=== PATIENT | female | born 1990 | race Two or more races ===

== ENCOUNTER 2016-08-04 01:30 | Observation (INO) | payer SELFPAY ==
[2015-06-07 16:06] VITALS: BP 129/92
[~2016-08-04 01:30] MED LIST: Ibuprofen PO
[2016-08-04] MEDS ORDERED: IV RINGERS,LACTATED 1000ML 1,000 ML IV SCH (01:45)
--- NOTE | 2016-08-04 03:24 | RAD ---
Examination: Obstetric ultrasound noted within 14 weeks. History: History of left-sided abdominal pain. COMPARISON None available Findings: Single living intrauterine fetus is identified with a heart rate of 144 beats per minute. movement is seen. Cardiac activity seen. Four chambered heart is seen. Three vessel cord is seen. Cord insertion is identified. Fluid in the bladder, stomach, kidneys, spine, brain are visualized. Cervical length 3.95 centimeters. Amniotic fluid is normal. Biparietal diameter measures 5.43 centimeters corresponding to 22 weeks and 4 days. Head circumference measures 20.2 centimeters corresponding to 22 weeks and 3 days Abdominal circumference measures 17.48 centimeters corresponding to 22 weeks and 5 days. Femur length measures 3.96 centimeters corresponding to 22 weeks and 5 days. Head circumference to abdominal circumference ratio 1.16. Estimated weight 513 grams. Estimated gestation age 22 weeks and 4 days by this ultrasound. Date of delivery by this ultrasound 12/04/2016. Given LMP is 03/23/2016. Clinical age is 19 weeks and 1 day with estimated delivery by LMP 12/28/2016. Placental grade :grade 1. Placenta location is a anterior wall. IMPRESSION Single living intrauterine fetus with heart rate of 144 beats per minute. Electronically signed by: Dick Macias (Aug 04, 2016 03:22:24)
== END 2016-08-04 04:16 | disposition home or self-care (01) ==
LOC: 3 SO LND 01:30
PROVIDERS: ADMIT Obstetrics & Gynecology; ATTEND Obstetrics & Gynecology
DX: O26.892 Other specified pregnancy related conditions, second trimester (principal); R10.9 Unspecified abdominal pain; Z3A.22 22 weeks gestation of pregnancy
CPT/HCPCS: 76805; G0378; G0379

== ENCOUNTER 2016-09-07 23:13 | Emergency (ER) | payer SELFPAY ==
[~2016-09-07] VITALS: Ht 165.1 cm; Wt 79.8 kg
[2016-09-07 23:28] VITALS: BP 110/61
--- NOTE | 2016-09-07 23:45 | PHYS DOC ---
Past Medical History Past Medical History: No Pertinent History Past Surgical History: No Surgical History Alcohol Use: None Drug Use: None Adult General Chief Complaint Chief Complaint: FEVER HPI HPI Patient is a 26 year old female who presents with cough, congestion, fever, body aches and headache that started yesterday. Took Tylenol at 0700 today. reports friend was diagnosed with influenza yesterday. Reports she herself is 6months . Denies any abdominal pain, vaginal bleeding, cramping Review of Systems Review of Systems Constitutional: fever since yesterday Eyes: Denies change in visual acuity, redness, or eye pain HENT: Denies nasal congestion or sore throat Respiratory: Cough since yesterday Cardiovascular: No additional information not addressed in HPI GI: Denies abdominal pain, nausea, vomiting, bloody stools or diarrhea : Denies dysuria or hematuria Musculoskeletal: Denies back pain or joint pain Integument: Denies rash or skin lesions Neurologic: Denies focal weakness or sensory changes. Headache since yesterday Endocrine: Denies polyuria or polydipsia [] Current Medications Current Medications Current Medications Medications (Trade) Dose Ordered Sig/Cynthia Start Time Stop Time Status Last Admin Dose Admin Oseltamivir Phosphate (Tamiflu) 75 mg 1X ONCE 09/08/16 00:30 09/08/16 00:31 DC 09/08/16 00:29 75 MG Allergies Allergies Allergies Coded Allergies Type Severity Reaction Last Updated Verified No Known Drug Allergies 06/04/15 No Physical Exam Physical Exam Constitutional: Well developed, well nourished, no acute distress, non-toxic appearance. HENT: Normocephalic, atraumatic, bilateral external ears normal, oropharynx moist, no oral exudates, nose normal. Eyes: PERRLA, EOMI, conjunctiva normal, no discharge. Neck: Normal range of motion, no tenderness, supple, no stridor. Cardiovascular:Heart rate regular rhythm, no murmur Lungs & Thorax: Bilateral breath sounds clear to auscultation Abdomen: Bowel sounds normal, soft, no tenderness, no masses, no pulsatile masses. Skin: Warm, dry, no erythema, no rash. Back: No tenderness, no CVA tenderness. Extremities: No tenderness, no cyanosis, no clubbing, ROM intact, no edema. Neurologic: Alert and oriented X 3, normal motor function, normal sensory function, no focal deficits noted. Psychologic: Affect normal, judgement normal, mood normal. [] Current Patient Data Vital Signs Vital Signs Date Time Temp Pulse Resp B/P Pulse Ox O2 Delivery O2 Flow Rate FiO2 09/07/16 23:28 97.8 104 17 97 Room Air 97.8 Lab Values Laboratory Tests Test 09/07/16 23:36 Influenza Type A Antigen Positive (NEGATIVE) Influenza Type B Antigen Negative (NEGATIVE) EKG EKG [] Radiology/Procedures Radiology/Procedures [] Impressions: 1. Influenza A Course & Med Decision Making Course & Med Decision Making Pertinent Labs and Imaging studies reviewed. (See chart for details) [] Dragon Disclaimer Dragon Disclaimer This electronic medical record was generated, in whole or in part, using a voice recognition dictation system. Departure Departure Impression: Primary Impression: Influenza A Disposition: 01 HOME, SELF-CARE Condition: STABLE Referrals: NO PCP (PCP) Patient Instructions: Influenza A (H1N1) in , Influenza, Adult, Easy- to-Read Additional Instructions: Continue the Tylenol as directed for fever control. Drink plenty of fluid. Call your OB in the morning to schedule follow up appointment. Take the prescription as directed. Scripts Oseltamivir Phosphate (Tamiflu)75 Mg Capsule1 Cap PO BID #10 CAP Prov:GERMAN NEWBERRY APRN 09/08/16 GERMAN NEWBERRY APRN Sep 07, 2016 23:45
[2016-09-08 00:11] LABS: OBC FLU VALID
[2016-09-08] MEDS ORDERED: OSEL75CA PO (00:21)
[2016-09-08] MEDS ORDERED: OSELTAMIVIR 75 MG CAPSULE PO ONE (00:30)
== END 2016-09-08 00:33 | disposition home or self-care (01) ==
LOC: ER 23:13
DX: O99.512 Diseases of the respiratory system complicating pregnancy, second trimester (principal); J09.X2 Influenza due to identified novel influenza A virus with other respiratory manifestations; Z3A.00 Weeks of gestation of pregnancy not specified
CPT/HCPCS: 87804; 99284

== ENCOUNTER 2016-11-12 23:23 | Observation (INO) | payer SELFPAY ==
[~2016-11-12 23:23] MED LIST changes: +OSEL75CA PO
[2016-11-12] MEDS ORDERED: IV RINGERS,LACTATED 1000ML 1,000 ML IV SCH (23:30)
[2016-11-12 23:54] LABS: BILIRUBIN,URINE NEGATIVE (NEG); GLUCOSE,URINE NEGATIVE (NEG); NITRITE,URINE NEGATIVE (NEG); PH,URINE 7.5; PROTEIN,URINE NEGATIVE (NEG-TRACE)
[2016-11-13 00:02] LABS: BACTERIA,URINE FEW /HPF (0-FEW); RBC,URINE OCC /HPF (0-2); SQUAMOUS EPITHELIAL CELL,UR MOD /LPF
[2016-12-04] MEDS ORDERED: NAPR500T PO (11:25)
== END 2016-11-13 00:35 | disposition home or self-care (01) ==
LOC: 3 SO LND 23:23
PROVIDERS: ADMIT Obstetrics & Gynecology; ATTEND Obstetrics & Gynecology
DX: O26.893 Other specified pregnancy related conditions, third trimester (principal); N89.8 Other specified noninflammatory disorders of vagina; M79.673 Pain in unspecified foot; Z3A.00 Weeks of gestation of pregnancy not specified
CPT/HCPCS: 81001; 87086; G0378; G0379

== ENCOUNTER 2018-10-31 22:13 | Inpatient (IN) | payer SELFPAY ==
[~2018-10-31] VITALS: Ht 165.1 cm; Wt 82.6 kg
[~2018-10-31 22:13] MED LIST changes: +NAPR-683 PO
[2018-10-31] MEDS ORDERED: IV NORMAL SALINE 1000ML BAG 1,000 ML IV ONE (23:00)
[2018-10-31] MEDS ORDERED: IPRATRPIUM/ALBUTEROL 0.5/2.5MG 3 ML NEBU. NEB ONE (23:00)
[2018-10-31] MEDS ORDERED: DEXAMETHASONE SOD PHOS 20 MG/5 ML VIAL. IV ONE (23:00)
[2018-10-31 23:15] LABS: BASO % 1 % (0-3); EOS # 0.6 x10^3/uL (0.0-0.7); EOS % 8 % (0-3); HEMATOCRIT 34.8 % (36.0-47.0); HEMOGLOBIN 11.1 g/dL (12.0-15.5); LYMPH # 1.2 x10^3/uL (1.0-4.8); LYMPH % 15 % (24-48); MEAN CORPUSCULAR HEMOGLOBIN 23 pg (25-35); MEAN CORPUSCULAR HGB CONC 32 g/dL (31-37); MEAN CORPUSCULAR VOLUME 73 fL (79-100); MONO # 0.4 x10^3/uL (0.0-1.1); MONO % 5 % (0-9); NEUT # 5.7 x10^3uL (1.8-7.7); NEUT % 72 % (31-73); PLATELET COUNT 308 x10^3/uL (140-400); RED BLOOD COUNT 4.78 x10^6/uL (3.50-5.40); RED CELL DISTRIBUTION WIDTH 16.5 % (11.5-14.5)
[2018-10-31 23:27] LABS: CREATININE 0.8 mg/dL (0.6-1.0); GFR 86.7; POTASSIUM 3.4 mmol/L (3.5-5.1)
[2018-10-31 23:32] LABS: ALBUMIN 3.5 g/dL (3.4-5.0); ALBUMIN/GLOBULIN RATIO 0.7 (1.0-1.7); MAGNESIUM 1.9 mg/dL (1.8-2.4); TOTAL BILIRUBIN 0.3 mg/dL (0.2-1.0); TOTAL PROTEIN 8.8 g/dL (6.4-8.2)
[2018-11-01] MEDS ORDERED: IPRATRPIUM/ALBUTEROL 0.5/2.5MG 3 ML NEBU. NEB ONE (00:15)
[2018-11-01] MEDS ORDERED: CONTRAST GIVEN. MC PRN (00:15)
--- NOTE | 2018-11-01 00:22 | PHYS DOC ---
Past Medical History Past Medical History: No Pertinent History Past Surgical History: No Surgical History Alcohol Use: None Drug Use: None Adult General Chief Complaint Chief Complaint: SHORTNESS OF BREATH HPI HPI Patient is a 28 year old female who presents with shortness of breath. She says shortness of breath started this morning when she was walking. She denies having any symptoms like this in the past. She is reporting some chest pain when she takes a deep breath. She also having some lightheadedness. Her shortness of breath is worse with exertion. Rest improved shortness of breath. Patient denies any fevers, chills, or recent sick contacts. Review of Systems Review of Systems Constitutional: Denies fever or chills Eyes: Denies change in visual acuity, redness, or eye pain HENT: Denies nasal congestion or sore throat Respiratory: Reports shortness of breath. Denies cough. Cardiovascular: Reports shortness of breath with inspiration. Denies palpitations. GI: Denies abdominal pain, nausea, vomiting : Denies dysuria or hematuria Musculoskeletal: Denies back pain or joint pain Integument: Denies rash or skin lesions Neurologic: Reports lightheadedness. Denies focal weakness or sensory changes Complete systems were reviewed and found to be within normal limits, except as documented in this note. Current Medications Current Medications Current Medications Medications (Trade) Dose Ordered Sig/Cynthia Start Time Stop Time Status Last Admin Dose Admin Albuterol/ Ipratropium (Duoneb) 3 ml 1X ONCE 11/01/18 00:15 11/01/18 00:16 DC 11/01/18 00:11 3 ML Dexamethasone Sodium Phosphate (Decadron) 10 mg 1X ONCE 10/31/18 23:00 10/31/18 23:01 DC 10/31/18 23:20 10 MG Info (CONTRAST GIVEN -- Rx MONITORING) 1 each PRN DAILY PRN 11/01/18 00:15 11/03/18 00:14 Iohexol (Omnipaque 350 Mg/ml) 100 ml 1X ONCE 11/01/18 00:30 11/01/18 00:31 DC 11/01/18 00:29 100 ML Sodium Chloride 500 ml @ 500 mls/hr 1X ONCE 11/01/18 00:30 11/01/18 01:29 DC 11/01/18 01:02 500 MLS/HR Allergies Allergies Allergies Coded Allergies Type Severity Reaction Last Updated Verified No Known Drug Allergies 06/04/15 No Physical Exam Physical Exam Constitutional: No acute distress, non-toxic appearance. HENT: Normocephalic, atraumatic, bilateral external ears normal, oropharynx moist. Eyes: EOMI, conjunctiva normal, no discharge. Neck: Normal range of motion, no tenderness, supple. Cardiovascular:Heart rate regular rhythm, no murmur Lungs & Thorax: Expiratory wheezing bilaterally. No rhonchi or rails Abdomen: Soft, nontender. Skin: Warm, dry Back: No tenderness, no CVA tenderness. Extremities: No cyanosis, no clubbing, no edema. Neurologic: Alert and oriented X 3, normal motor function, normal sensory function, no focal deficits noted. Psychologic: Affect normal, mood normal. Current Patient Data Vital Signs Vital Signs Date Time Temp Pulse Resp B/P (MAP) Pulse Ox O2 Delivery O2 Flow Rate FiO2 11/01/18 00:11 100 Room Air 10/31/18 23:24 92 20 139/82 (101) 10/31/18 22:15 98.9 98.9 Lab Values Laboratory Tests Test 10/31/18 23:05 10/31/18 23:09 10/31/18 23:10 White Blood Count 8.0 x10^3/uL (4.0-11.0) Red Blood Count 4.78 x10^6/uL (3.50-5.40) Hemoglobin 11.1 g/dL (12.0-15.5) L Hematocrit 34.8 % (36.0-47.0) L Mean Corpuscular Volume 73 fL (79-100) L Mean Corpuscular Hemoglobin 23 pg (25-35) L Mean Corpuscular Hemoglobin Concent 32 g/dL (31-37) Red Cell Distribution Width 16.5 % (11.5-14.5) H Platelet Count 308 x10^3/uL (140-400) Neutrophils (%) (Auto) 72 % (31-73) Lymphocytes (%) (Auto) 15 % (24-48) L Monocytes (%) (Auto) 5 % (0-9) Eosinophils (%) (Auto) 8 % (0-3) H Basophils (%) (Auto) 1 % (0-3) Neutrophils # (Auto) 5.7 x10^3uL (1.8-7.7) Lymphocytes # (Auto) 1.2 x10^3/uL (1.0-4.8) Monocytes # (Auto) 0.4 x10^3/uL (0.0-1.1) Eosinophils # (Auto) 0.6 x10^3/uL (0.0-0.7) Basophils # (Auto) 0.0 x10^3/uL (0.0-0.2) D-Dimer (Shelly) 0.62 ug/mlFEU (0.00-0.50) H Sodium Level 138 mmol/L (136-145) Potassium Level 3.4 mmol/L (3.5-5.1) L Chloride Level 102 mmol/L (98-107) Carbon Dioxide Level 27 mmol/L (21-32) Anion Gap 9 (6-14) Blood Urea Nitrogen 11 mg/dL (7-20) Creatinine 0.8 mg/dL (0.6-1.0) Estimated GFR (Cockcroft-Gault) 86.7 BUN/Creatinine Ratio 14 (6-20) Glucose Level 105 mg/dL (70-99) H Calcium Level 9.0 mg/dL (8.5-10.1) Magnesium Level 1.9 mg/dL (1.8-2.4) Total Bilirubin 0.3 mg/dL (0.2-1.0) Aspartate Amino Transferase (AST) 26 U/L (15-37) Alanine Aminotransferase (ALT) 22 U/L (14-59) Alkaline Phosphatase 104 U/L (46-116) Total Protein 8.8 g/dL (6.4-8.2) H Albumin 3.5 g/dL (3.4-5.0) Albumin/Globulin Ratio 0.7 (1.0-1.7) L POC Urine HCG, Qualitative Hcg negative (Negative) Lactic Acid Level 1.2 mmol/L (0.4-2.0) Laboratory Tests 10/31/18 23:05 Laboratory Tests 10/31/18 23:05 EKG EKG EKG @ 2221, sinus rhythm, no ST elevation or signs of ischemia Radiology/Procedures Radiology/Procedures PROCEDURE: CT ANGIOGRAPHY CHEST INDICATION: SOA; EVAL FOR PE; OMNI 350, 100ML COMPARISON: None. TECHNIQUE: Axial CT images obtained through the chest. Intravenous contrast utilized. Angiogram 3D images processed per protocol. One or more of the following individualized dose reduction techniques were utilized for this examination: 1. Automated exposure control; 2. Adjustment of the mA and/or kV according to patient size; 3. Use of iterative reconstruction technique. FINDINGS: Patient motion limits exam. No evidence of pneumothorax. Groundglass opacity in the right middle lobe. There is also a small groundglass opacity at right lung base. A ascending thoracic aorta is largely obscured by motion. No evidence of descending thoracic aortic aneurysm. No embolus in the main, right main or left main pulmonary artery. Large amount of patient motion obscures the more peripheral vessels. IMPRESSION: Large amount of patient motion limits the exam. No embolus in main, right main or left main pulmonary artery but the more peripheral vessels are obscured by motion. There are couple small groundglass opacities within the right lung. Could be secondary to atelectatic changes but small foci of airway inflammation can also have this appearance. Electronically signed by: Mode Zepeda MD (11/01/2018 1:28 AM) [facility] DICTATED and SIGNED BY: MODE ZEPEDA MD Course & Med Decision Making Course & Med Decision Making 28 year old female is in the emergency department for shortness of breath. Patient stated she is retrosternal around 10:30 this morning. She denies any previous medical history of asthma or similar problems to her chest expansion today. Denies any family history of heart disease or blood clots. Patient had auditory expiratory wheezing upon arrival but was satting at 98%. Labs and imaging March and posted to chart. D-dimer is elevated. Symptomatic treatment provided with interval improvement. Initial breathing treatment provided relief however patient required additional breathing treatments to treat her shortness of breath. Dragon Disclaimer Dragon Disclaimer This electronic medical record was generated, in whole or in part, using a voice recognition dictation system. Departure Departure Impression: Primary Impression: Bronchitis Disposition: ADMITTED INPATIENT Admitting Physician: Marlen Singh Condition: STABLE Referrals: NO PCP (PCP) AWILDA BROOKE DO Nov 01, 2018 00:22
[2018-11-01] MEDS ORDERED: IV NORMAL SALINE 500ML BAG 500 ML IV ONE (00:30)
[2018-11-01] MEDS ORDERED: IOHEXOL 350 MG/ML 100 ML VIAL. IV ONE (00:30)
--- NOTE | 2018-11-01 01:31 | RAD ---
INDICATION: SOA; EVAL FOR PE; OMNI 350, 100ML COMPARISON: None. TECHNIQUE: Axial CT images obtained through the chest. Intravenous contrast utilized. Angiogram 3D images processed per protocol. One or more of the following individualized dose reduction techniques were utilized for this examination: 1. Automated exposure control; 2. Adjustment of the mA and/or kV according to patient size; 3. Use of iterative reconstruction technique. FINDINGS: Patient motion limits exam. No evidence of pneumothorax. Groundglass opacity in the right middle lobe. There is also a small groundglass opacity at right lung base. A ascending thoracic aorta is largely obscured by motion. No evidence of descending thoracic aortic aneurysm. No embolus in the main, right main or left main pulmonary artery. Large amount of patient motion obscures the more peripheral vessels. IMPRESSION: Large amount of patient motion limits the exam. No embolus in main, right main or left main pulmonary artery but the more peripheral vessels are obscured by motion. There are couple small groundglass opacities within the right lung. Could be secondary to atelectatic changes but small foci of airway inflammation can also have this appearance. Electronically signed by: Ivan Zepeda MD (11/01/2018 1:28 AM) [facility]
[2018-11-01] MEDS ORDERED: ACETAMINOPHEN 325 MG TABLET. PO PRN (02:15)
[2018-11-01 03:00] VITALS: BP 109/69
[2018-11-01 07:00] VITALS: BP 104/53
--- NOTE | 2018-11-01 07:32 | EKG ---
[facility] [address] [place] [address] Test Date: 2018-10-31 Test Time: 22:21:15 Pat Name: ELAN MOSELEY Department: Room: 504 Gender: F Supervisor Fitting: : 1990 Requested By: AWILDA BROOKE Order Number: [id number] Reading MD: Eric Yi Measurements Intervals [place] Rate: 97 P: 11 TN: 166 QRS: 78 QRSD: 92 T: 6 QT: 340 QTc: 435 Interpretive Statements SINUS RHYTHM NON SPECIFIC T ABNORMALITY BORDERLINE ECG No previous ECG available for comparison Electronically Signed On 11-06-2018 12:00:30 CDT by Eric Yi
[2018-11-01] MEDS: IPRATRPIUM/ALBUTEROL 0.5/2.5MG 3 ML NEBU. NEB SCH ×4 (08:56→20:40)
[2018-11-01 11:00] VITALS: BP 120/72
--- NOTE | 2018-11-01 11:59 | PDOC1 ---
History and Physical Date of Admission: Date of Admission DATE: 11/01/18 TIME: 11:56 Chief Complaint: Problems: (1) Influenza A (2) Vaginal delivery (3) Patient left without being seen (4) Bronchitis History of Present Illness: HPI: Patient is a 28 year old female who presents with shortness of breath. She says shortness of breath started this morning when she was walking. She denies having any symptoms like this in the past. She is reporting some chest pain when she takes a deep breath. She also having some lightheadedness. Her shortness of breath is worse with exertion. Rest improved shortness of breath. Patient denies any fevers, chills, or recent sick contacts. Past Medical/Surgical History: PMH/PSH: Benign Allergies: Allergies: Coded Allergies: No Known Drug Allergies (Unverified , 06/04/15) Family History: Family History: Asthma Social History: Social Hisoty: She does not drink smoke or take drugs Current Medications: Current Medications Current Medications Albuterol/ Ipratropium (Duoneb) 3 ml 1X ONCE NEB Last administered on 10/31/18at 23:04; Start 10/31/18 at 23:00; Stop 10/31/18 at 23:01; Status DC Sodium Chloride 1,000 ml @ 1,000 mls/hr 1X ONCE IV Last administered on 10/31/18at 23:16; Start 10/31/18 at 23:00; Stop 10/31/18 at 23:59; Status DC Dexamethasone Sodium Phosphate (Decadron) 10 mg 1X ONCE IV Last administered on 10/31/18at 23:20; Start 10/31/18 at 23:00; Stop 10/31/18 at 23:01; Status DC Albuterol/ Ipratropium (Duoneb) 3 ml 1X ONCE NEB Last administered on 11/01/18at 00:11; Start 11/01/18 at 00:15; Stop 11/01/18 at 00:16; Status DC Sodium Chloride 500 ml @ 500 mls/hr 1X ONCE IV Last administered on 11/01/18at 01:02; Start 11/01/18 at 00:30; Stop 11/01/18 at 01:29; Status DC Iohexol (Omnipaque 350 Mg/ml) 100 ml 1X ONCE IV Last administered on 11/01/18at 00:29; Start 11/01/18 at 00:30; Stop 11/01/18 at 00:31; Status DC Info (CONTRAST GIVEN -- Rx MONITORING) 1 each PRN DAILY PRN MC SEE COMMENTS; Start 11/01/18 at 00:15; Stop 11/03/18 at 00:14 Acetaminophen (Tylenol) 650 mg PRN Q4HRS PRN PO FEVER Last administered on 11/01/18at 03:14; Start 11/01/18 at 02:15; Stop 11/02/18 at 02:14 Albuterol/ Ipratropium (Duoneb) 3 ml RTQID NEB Last administered on 11/01/18at 08:56; Start 11/01/18 at 08:00; Stop 11/02/18 at 07:59 Potassium Chloride (Klor-Con) 40 meq 1X ONCE PO ; Start 11/01/18 at 12:30; Stop 11/01/18 at 12:31 Ceftriaxone Sodium (Rocephin) 1 gm Q24H IVP ; Start 11/01/18 at 13:00 Hydrocortisone (Cortaid) 1 nadia BID TP ; Start 11/01/18 at 21:00 Active Scripts Active ROS: Review of Systems Review of System REVIEW OF SYSTEMS: GENERAL: Denies weakness SKIN: Complains of rash on her skin looked at it looks like psoriasis or ecze ma. EYES: No blurred, double or loss of vision. NOSE AND THROAT: No history of nosebleeds, hoarseness or sore throat. HEART: No history of palpitations, chest pain or shortness of breath on exertion. LUNGS: She complains of cough and shortness of breath GASTROINTESTINAL: Denies changes in appetite, nausea, vomiting, diarrhea or constipation. GENITOURINARY: No history of frequency, urgency, hesitancy or nocturia. NEUROLOGIC: Denies history of numbness, tingling, tremor or weakness. PSYCHIATRIC: No history of panic, anxiety or depression. ENDOCRINE: No history of heat or cold intolerance, polyuria or polydipsia. EXTREMITIES: Denies muscle weakness, joint pain, pain on walking or stiffness. Physical Exam: Vital Signs: Vital Signs Date Time Temp Pulse Resp B/P (MAP) Pulse Ox O2 Delivery O2 Flow Rate FiO2 11/01/18 08:59 100 Room Air 11/01/18 07:00 98.0 101 18 104/53 (70) 98.0 Physcial Exam: GEN.: No apparent distress. Alert and oriented. HEENT: Head is normocephalic, atraumatic NECK: Supple, no JVD LUNGS: Surprisingly Clear to auscultation without rhonchi or wheezing HEART: RRR, S1, S2 present. Peripheral pulses intact ABDOMEN: Soft, nontender. Positive bowel sounds no organomegaly EXTREMITIES: Without any cyanosis, clubbing, or edema. Pedal pulses intact NEUROLOGIC: Normal speech, normal tone. A&O x 3 PSYCHIATRIC: Normal affect, normal mood. Stable SKIN: Abuse eczema and/or psoriasis I gave her prescription to see dermatology as an outpatient Labs: Labs: Laboratory Tests Test 10/31/18 23:05 10/31/18 23:09 10/31/18 23:10 White Blood Count 8.0 x10^3/uL (4.0-11.0) Red Blood Count 4.78 x10^6/uL (3.50-5.40) Hemoglobin 11.1 g/dL (12.0-15.5) Hematocrit 34.8 % (36.0-47.0) Mean Corpuscular Volume 73 fL (79-100) Mean Corpuscular Hemoglobin 23 pg (25-35) Mean Corpuscular Hemoglobin Concent 32 g/dL (31-37) Red Cell Distribution Width 16.5 % (11.5-14.5) Platelet Count 308 x10^3/uL (140-400) Neutrophils (%) (Auto) 72 % (31-73) Lymphocytes (%) (Auto) 15 % (24-48) Monocytes (%) (Auto) 5 % (0-9) Eosinophils (%) (Auto) 8 % (0-3) Basophils (%) (Auto) 1 % (0-3) Neutrophils # (Auto) 5.7 x10^3uL (1.8-7.7) Lymphocytes # (Auto) 1.2 x10^3/uL (1.0-4.8) Monocytes # (Auto) 0.4 x10^3/uL (0.0-1.1) Eosinophils # (Auto) 0.6 x10^3/uL (0.0-0.7) Basophils # (Auto) 0.0 x10^3/uL (0.0-0.2) D-Dimer (Shelly) 0.62 ug/mlFEU (0.00-0.50) Sodium Level 138 mmol/L (136-145) Potassium Level 3.4 mmol/L (3.5-5.1) Chloride Level 102 mmol/L (98-107) Carbon Dioxide Level 27 mmol/L (21-32) Anion Gap 9 (6-14) Blood Urea Nitrogen 11 mg/dL (7-20) Creatinine 0.8 mg/dL (0.6-1.0) Estimated GFR (Cockcroft-Gault) 86.7 BUN/Creatinine Ratio 14 (6-20) Glucose Level 105 mg/dL (70-99) Calcium Level 9.0 mg/dL (8.5-10.1) Magnesium Level 1.9 mg/dL (1.8-2.4) Total Bilirubin 0.3 mg/dL (0.2-1.0) Aspartate Amino Transf (AST/SGOT) 26 U/L (15-37) Alanine Aminotransferase (ALT/SGPT) 22 U/L (14-59) Alkaline Phosphatase 104 U/L (46-116) Total Protein 8.8 g/dL (6.4-8.2) Albumin 3.5 g/dL (3.4-5.0) Albumin/Globulin Ratio 0.7 (1.0-1.7) Bedside Urine HCG, Qualitative Hcg negative (Negative) Lactic Acid Level 1.2 mmol/L (0.4-2.0) Laboratory Tests Test 10/31/18 23:05 10/31/18 23:09 10/31/18 23:10 White Blood Count 8.0 x10^3/uL (4.0-11.0) Red Blood Count 4.78 x10^6/uL (3.50-5.40) Hemoglobin 11.1 g/dL (12.0-15.5) Hematocrit 34.8 % (36.0-47.0) Mean Corpuscular Volume 73 fL (79-100) Mean Corpuscular Hemoglobin 23 pg (25-35) Mean Corpuscular Hemoglobin Concent 32 g/dL (31-37) Red Cell Distribution Width 16.5 % (11.5-14.5) Platelet Count 308 x10^3/uL (140-400) Neutrophils (%) (Auto) 72 % (31-73) Lymphocytes (%) (Auto) 15 % (24-48) Monocytes (%) (Auto) 5 % (0-9) Eosinophils (%) (Auto) 8 % (0-3) Basophils (%) (Auto) 1 % (0-3) Neutrophils # (Auto) 5.7 x10^3uL (1.8-7.7) Lymphocytes # (Auto) 1.2 x10^3/uL (1.0-4.8) Monocytes # (Auto) 0.4 x10^3/uL (0.0-1.1) Eosinophils # (Auto) 0.6 x10^3/uL (0.0-0.7) Basophils # (Auto) 0.0 x10^3/uL (0.0-0.2) D-Dimer (Shelly) 0.62 ug/mlFEU (0.00-0.50) Sodium Level 138 mmol/L (136-145) Potassium Level 3.4 mmol/L (3.5-5.1) Chloride Level 102 mmol/L (98-107) Carbon Dioxide Level 27 mmol/L (21-32) Anion Gap 9 (6-14) Blood Urea Nitrogen 11 mg/dL (7-20) Creatinine 0.8 mg/dL (0.6-1.0) Estimated GFR (Cockcroft-Gault) 86.7 BUN/Creatinine Ratio 14 (6-20) Glucose Level 105 mg/dL (70-99) Calcium Level 9.0 mg/dL (8.5-10.1) Magnesium Level 1.9 mg/dL (1.8-2.4) Total Bilirubin 0.3 mg/dL (0.2-1.0) Aspartate Amino Transf (AST/SGOT) 26 U/L (15-37) Alanine Aminotransferase (ALT/SGPT) 22 U/L (14-59) Alkaline Phosphatase 104 U/L (46-116) Total Protein 8.8 g/dL (6.4-8.2) Albumin 3.5 g/dL (3.4-5.0) Albumin/Globulin Ratio 0.7 (1.0-1.7) Bedside Urine HCG, Qualitative Hcg negative (Negative) Lactic Acid Level 1.2 mmol/L (0.4-2.0) Images: Images Chest x-ray is clear Assessment/Plan Assessment/Plan Bronchitis, eczma Plan IV antibiotics DuoNeb's when necessary oxygen cortisone cream to the skin twice a day Frequent labs DVT prophylaxis full code home meds LUCINA MCLEAN III DO Nov 01, 2018 11:59
[2018-11-01] MEDS ORDERED: POTASSIUM CHLORIDE 20 MEQ TABLET.ER. PO ONE (12:30)
[2018-11-01] MEDS ORDERED: cefTRIAXone IV Push 1 GM VIAL. IVP SCH (13:00)
[2018-11-01 15:00] VITALS: BP 122/67
[2018-11-01 19:00] VITALS: BP 104/57
[2018-11-01] MEDS: HYDROCORTISONE 1% TOPICAL OINTMENT 30GM TUBE. TP SCH (21:18)
[2018-11-01 23:00] VITALS: BP 110/59
[2018-11-02 03:00] VITALS: BP 102/55
[2018-11-02 04:39] LABS: BASO % 0 % (0-3); EOS % 0 % (0-3); HEMATOCRIT 29.4 % (36.0-47.0); HEMOGLOBIN 9.4 g/dL (12.0-15.5); LYMPH # 1.3 x10^3/uL (1.0-4.8); LYMPH % 16 % (24-48); MEAN CORPUSCULAR HEMOGLOBIN 23 pg (25-35); MEAN CORPUSCULAR HGB CONC 32 g/dL (31-37); MEAN CORPUSCULAR VOLUME 73 fL (79-100); MONO # 0.6 x10^3/uL (0.0-1.1); MONO % 7 % (0-9); NEUT # 6.4 x10^3uL (1.8-7.7); NEUT % 77 % (31-73); PLATELET COUNT 275 x10^3/uL (140-400); RED BLOOD COUNT 4.05 x10^6/uL (3.50-5.40); RED CELL DISTRIBUTION WIDTH 16.8 % (11.5-14.5); WHITE BLOOD COUNT 8.3 x10^3/uL (4.0-11.0)
[2018-11-02 05:00] LABS: CALCIUM 8.6 mg/dL (8.5-10.1); CREATININE 0.8 mg/dL (0.6-1.0); GFR 86.7; POTASSIUM 3.9 mmol/L (3.5-5.1)
[2018-11-02 07:00] VITALS: BP 96/53
[2018-11-02] MEDS: IPRATRPIUM/ALBUTEROL 0.5/2.5MG 3 ML NEBU. NEB SCH (07:32)
[2018-11-02] MEDS: HYDROCORTISONE 1% TOPICAL OINTMENT 30GM TUBE. TP SCH (08:00)
[2018-11-02 11:00] VITALS: BP 123/84
--- NOTE | 2018-11-02 11:00 | PDOC3 ---
[facility]Dis[facility] Summary Date of Admission: Date of Admission: Nov 01, 2018 Date of Discharge: Date of Discharge: Nov 02, 2018 Admission Diagnosis: Admitting Diagnosis: Bronchitis and eczema Discharge Diagnosis: Discharge Diagnosis: Resolving bronchitis and eczema Consults: Consults: None Procedures: Procedures: None Hospital Course: Hospital Course: is a pleasant 28-year-old female who presented with bronchitis. We admitted the patient and gave her IV antibiotics duo nebs some hydrocortisone cream for her eczema. Over the past 48 hours she is returned to her baseline This morning I saw and examined her her heart tones were normal her lungs were clear abdomen was soft extremities no edema plan to discharge Disposition: Disposition/Orders: D/C to Home Activity: Activity: Resume previous activity Diet: Diet: Regular Total Time: Total Time: 32 minutes LUCINA MCLEAN III, DO Nov 02, 2018 11:00
--- NOTE | 2018-11-02 11:08 | PDOC ---
PROGRESS NOTES Chief Complaint Chief Complaint SOB History of Present Illness History of Present Illness Patient was seen resting in bed today. She speaks chuukese. Her loved one is in the room with her as a mold forms builder. She is feeling better today. She would like to go home. Vitals Vitals Vital Signs Date Time Temp Pulse Resp B/P (MAP) Pulse Ox O2 Delivery O2 Flow Rate FiO2 11/02/18 08:00 Room Air 11/02/18 07:32 97 11/02/18 07:00 98.2 75 18 96/53 (67) 98.2 Physical Exam General: Alert, Oriented X3, Cooperative, No acute distress Heart: Regular rate, Normal S1, Normal S2, No murmurs Lungs: Clear (No wheezes, rales, or rhonchi) Abdomen: Soft, No tenderness, No masses Extremities: No edema, Normal pulses, No tenderness/swelling Skin: No breakdown, No significant lesion, Other (Has dark patches on skin) Labs LABS Laboratory Tests Test 11/02/18 03:35 White Blood Count 8.3 x10^3/uL (4.0-11.0) Red Blood Count 4.05 x10^6/uL (3.50-5.40) Hemoglobin 9.4 g/dL (12.0-15.5) Hematocrit 29.4 % (36.0-47.0) Mean Corpuscular Volume 73 fL (79-100) Mean Corpuscular Hemoglobin 23 pg (25-35) Mean Corpuscular Hemoglobin Concent 32 g/dL (31-37) Red Cell Distribution Width 16.8 % (11.5-14.5) Platelet Count 275 x10^3/uL (140-400) Neutrophils (%) (Auto) 77 % (31-73) Lymphocytes (%) (Auto) 16 % (24-48) Monocytes (%) (Auto) 7 % (0-9) Eosinophils (%) (Auto) 0 % (0-3) Basophils (%) (Auto) 0 % (0-3) Neutrophils # (Auto) 6.4 x10^3uL (1.8-7.7) Lymphocytes # (Auto) 1.3 x10^3/uL (1.0-4.8) Monocytes # (Auto) 0.6 x10^3/uL (0.0-1.1) Eosinophils # (Auto) 0.0 x10^3/uL (0.0-0.7) Basophils # (Auto) 0.0 x10^3/uL (0.0-0.2) Sodium Level 138 mmol/L (136-145) Potassium Level 3.9 mmol/L (3.5-5.1) Chloride Level 105 mmol/L (98-107) Carbon Dioxide Level 23 mmol/L (21-32) Anion Gap 10 (6-14) Blood Urea Nitrogen 10 mg/dL (7-20) Creatinine 0.8 mg/dL (0.6-1.0) Estimated GFR (Cockcroft-Gault) 86.7 Glucose Level 139 mg/dL (70-99) Calcium Level 8.6 mg/dL (8.5-10.1) Review of Systems Review of Systems Patient denies fevers, chills, N/V, CP, SOB, diarrhea. Assessment and Plan Assessmemt and Plan Problems Medical Problems: (1) Bronchitis Status: Acute Assessment: Bronchitis Eczema Plan: Rocephin 1g IV q24 Hydrocortisone cream 1% PRN for possible eczema Outpatient dermatology recommendation Home on augmentin 875 BID, script in chart F/u labs PT/OT DVT prophylaxis DC home today Comment Review of Relevant I have reviewed the following items nayana (where applicable) has been applied. Labs Laboratory Tests Test 10/31/18 23:05 10/31/18 23:09 10/31/18 23:10 11/02/18 03:35 White Blood Count 8.0 x10^3/uL (4.0-11.0) 8.3 x10^3/uL (4.0-11.0) Red Blood Count 4.78 x10^6/uL (3.50-5.40) 4.05 x10^6/uL (3.50-5.40) Hemoglobin 11.1 g/dL (12.0-15.5) 9.4 g/dL (12.0-15.5) Hematocrit 34.8 % (36.0-47.0) 29.4 % (36.0-47.0) Mean Corpuscular Volume 73 fL (79-100) 73 fL (79-100) Mean Corpuscular Hemoglobin 23 pg (25-35) 23 pg (25-35) Mean Corpuscular Hemoglobin Concent 32 g/dL (31-37) 32 g/dL (31-37) Red Cell Distribution Width 16.5 % (11.5-14.5) 16.8 % (11.5-14.5) Platelet Count 308 x10^3/uL (140-400) 275 x10^3/uL (140-400) Neutrophils (%) (Auto) 72 % (31-73) 77 % (31-73) Lymphocytes (%) (Auto) 15 % (24-48) 16 % (24-48) Monocytes (%) (Auto) 5 % (0-9) 7 % (0-9) Eosinophils (%) (Auto) 8 % (0-3) 0 % (0-3) Basophils (%) (Auto) 1 % (0-3) 0 % (0-3) Neutrophils # (Auto) 5.7 x10^3uL (1.8-7.7) 6.4 x10^3uL (1.8-7.7) Lymphocytes # (Auto) 1.2 x10^3/uL (1.0-4.8) 1.3 x10^3/uL (1.0-4.8) Monocytes # (Auto) 0.4 x10^3/uL (0.0-1.1) 0.6 x10^3/uL (0.0-1.1) Eosinophils # (Auto) 0.6 x10^3/uL (0.0-0.7) 0.0 x10^3/uL (0.0-0.7) Basophils # (Auto) 0.0 x10^3/uL (0.0-0.2) 0.0 x10^3/uL (0.0-0.2) D-Dimer (Shelly) 0.62 ug/mlFEU (0.00-0.50) Sodium Level 138 mmol/L (136-145) 138 mmol/L (136-145) Potassium Level 3.4 mmol/L (3.5-5.1) 3.9 mmol/L (3.5-5.1) Chloride Level 102 mmol/L (98-107) 105 mmol/L (98-107) Carbon Dioxide Level 27 mmol/L (21-32) 23 mmol/L (21-32) Anion Gap 9 (6-14) 10 (6-14) Blood Urea Nitrogen 11 mg/dL (7-20) 10 mg/dL (7-20) Creatinine 0.8 mg/dL (0.6-1.0) 0.8 mg/dL (0.6-1.0) Estimated GFR (Cockcroft-Gault) 86.7 86.7 BUN/Creatinine Ratio 14 (6-20) Glucose Level 105 mg/dL (70-99) 139 mg/dL (70-99) Calcium Level 9.0 mg/dL (8.5-10.1) 8.6 mg/dL (8.5-10.1) Magnesium Level 1.9 mg/dL (1.8-2.4) Total Bilirubin 0.3 mg/dL (0.2-1.0) Aspartate Amino Transf (AST/SGOT) 26 U/L (15-37) Alanine Aminotransferase (ALT/SGPT) 22 U/L (14-59) Alkaline Phosphatase 104 U/L (46-116) Total Protein 8.8 g/dL (6.4-8.2) Albumin 3.5 g/dL (3.4-5.0) Albumin/Globulin Ratio 0.7 (1.0-1.7) Bedside Urine HCG, Qualitative Hcg negative (Negative) Lactic Acid Level 1.2 mmol/L (0.4-2.0) Laboratory Tests Test 11/02/18 03:35 White Blood Count 8.3 x10^3/uL (4.0-11.0) Red Blood Count 4.05 x10^6/uL (3.50-5.40) Hemoglobin 9.4 g/dL (12.0-15.5) Hematocrit 29.4 % (36.0-47.0) Mean Corpuscular Volume 73 fL (79-100) Mean Corpuscular Hemoglobin 23 pg (25-35) Mean Corpuscular Hemoglobin Concent 32 g/dL (31-37) Red Cell Distribution Width 16.8 % (11.5-14.5) Platelet Count 275 x10^3/uL (140-400) Neutrophils (%) (Auto) 77 % (31-73) Lymphocytes (%) (Auto) 16 % (24-48) Monocytes (%) (Auto) 7 % (0-9) Eosinophils (%) (Auto) 0 % (0-3) Basophils (%) (Auto) 0 % (0-3) Neutrophils # (Auto) 6.4 x10^3uL (1.8-7.7) Lymphocytes # (Auto) 1.3 x10^3/uL (1.0-4.8) Monocytes # (Auto) 0.6 x10^3/uL (0.0-1.1) Eosinophils # (Auto) 0.0 x10^3/uL (0.0-0.7) Basophils # (Auto) 0.0 x10^3/uL (0.0-0.2) Sodium Level 138 mmol/L (136-145) Potassium Level 3.9 mmol/L (3.5-5.1) Chloride Level 105 mmol/L (98-107) Carbon Dioxide Level 23 mmol/L (21-32) Anion Gap 10 (6-14) Blood Urea Nitrogen 10 mg/dL (7-20) Creatinine 0.8 mg/dL (0.6-1.0) Estimated GFR (Cockcroft-Gault) 86.7 Glucose Level 139 mg/dL (70-99) Calcium Level 8.6 mg/dL (8.5-10.1) Medications Current Medications Albuterol/ Ipratropium (Duoneb) 3 ml 1X ONCE NEB Last administered on 10/31/18a t 23:04; Start 10/31/18 at 23:00; Stop 10/31/18 at 23:01; Status DC Sodium Chloride 1,000 ml @ 1,000 mls/hr 1X ONCE IV Last administered on 10/31/18at 23:16; Start 10/31/18 at 23:00; Stop 10/31/18 at 23:59; Status DC Dexamethasone Sodium Phosphate (Decadron) 10 mg 1X ONCE IV Last administered on 10/31/18at 23:20; Start 10/31/18 at 23:00; Stop 10/31/18 at 23:01; Status DC Albuterol/ Ipratropium (Duoneb) 3 ml 1X ONCE NEB Last administered on 11/01/18at 00:11; Start 11/01/18 at 00:15; Stop 11/01/18 at 00:16; Status DC Sodium Chloride 500 ml @ 500 mls/hr 1X ONCE IV Last administered on 11/01/18 01:02; Start 11/01/18 at 00:30; Stop 11/01/18 at 01:29; Status DC Iohexol (Omnipaque 350 Mg/ml) 100 ml 1X ONCE IV Last administered on 11/01/18at 00:29; Start 11/01/18 at 00:30; Stop 11/01/18 at 00:31; Status DC Info (CONTRAST GIVEN -- Rx MONITORING) 1 each PRN DAILY PRN MC SEE COMMENTS; Start 11/01/18 at 00:15; Stop 11/03/18 at 00:14 Acetaminophen (Tylenol) 650 mg PRN Q4HRS PRN PO FEVER Last administered on 11/01/18at 03:14; Start 11/01/18 at 02:15; Stop 11/02/18 at 02:14; Status DC Albuterol/ Ipratropium (Duoneb) 3 ml RTQID NEB Last administered on 11/02/18at 07:32; Start 11/01/18 at 08:00; Stop 11/02/18 at 07:59; Status DC Potassium Chloride (Klor-Con) 40 meq 1X ONCE PO Last administered on 11/01/18at 12:57; Start 11/01/18 at 12:30; Stop 11/01/18 at 12:31; Status DC Ceftriaxone Sodium (Rocephin) 1 gm Q24H IVP Last administered on 11/01/18at 12:58; Start 11/01/18 at 13:00 Hydrocortisone (Cortaid) 1 nadia BID TP Last administered on 11/02/18at 08:00; Start 11/01/18 at 21:00 Active Scripts Active Vitals/I & O Vital Sign - Last 24 Hours 11/01/18 11/01/18 11/01/18 11/01/18 13:32 15:00 16:27 19:00 Temp 97.9 98.7 97.9 98.7 Pulse 102 101 Resp 18 18 B/P (MAP) 122/67 (85) 104/57 (73) Pulse Ox 97 97 O2 Delivery Room Air Room Air Room Air Room Air 11/01/18 11/01/18 11/01/18 11/02/18 20:08 20:41 23:00 03:00 Temp 97.8 97.9 97.8 97.9 Pulse 97 84 Resp 18 18 B/P (MAP) 110/59 (76) 102/55 (71) Pulse Ox 100 98 99 O2 Delivery Room Air Room Air Room Air Room Air 11/02/18 11/02/18 11/02/18 07:00 07:32 08:00 Temp 98.2 98.2 Pulse 75 Resp 18 B/P (MAP) 96/53 (67) Pulse Ox 98 97 O2 Delivery Room Air Room Air Room Air Intake and Output 11/01/18 11/01/18 11/02/18 14:59 22:59 06:59 Intake Total 540 ml 180 ml Output Total 1 ml 2 ml Balance 539 ml 178 ml LUCINA MCLEAN III DO Nov 02, 2018 11:08
--- NOTE | 2018-11-02 11:42 | NUR ---
Discharge Note: TEDDY MOSELEY Discharge instructions and discharge home medications reviewed with Patient and a copy given. All questions have been answered and understanding verbalized. The following instructions and handouts were given: Bronchitis Discontinued lines and drains: Peripheral IV intact. Patient discharged to Home or Self Care with Family Member via Wheelchair
== END 2018-11-02 11:43 | disposition home or self-care (01) | DRG 203 ==
LOC: ER 22:13 → 5 NORTH 11-01 02:00
PROVIDERS: ADMIT Internal Medicine; ATTEND Internal Medicine
DX: J40 Bronchitis, not specified as acute or chronic (principal); L30.9 Dermatitis, unspecified; Z82.5 Family history of asthma and other chronic lower respiratory diseases
CPT/HCPCS: 36415; 71275; 80048; 80053; 81025; 83605; 83735; 85025; 85379; 93005; 94640; 94760; 96361; 96374; J0696; J1100; J7030; J7040; J7620; Q9967; 99285-25

== ENCOUNTER 2019-06-08 23:37 | Emergency (ER) | payer SELFPAY ==
[~2019-06-08] VITALS: Ht 157.5 cm; Wt 81.6 kg
[2019-06-08 23:51] VITALS: BP 125/76
--- NOTE | 2019-06-09 | PHYS DOC ---
Past Medical History Past Medical History: No Pertinent History (NEPTALI WAGGONER APRN) Past Surgical History: No Surgical History (NEPTALI WAGGONER APRN) Alcohol Use: None Drug Use: None (NEPTALI WAGGONER APRN) Attending Signature I have participated in the care of this patient and I have reviewed and agree with all pertinent clinical information above including history, exam, and recommendations. (COURTNEY MOHAN MD) Adult General Chief Complaint Chief Complaint: COUGH HPI HPI Patient is a 28 year old female who presents to the emergency department with complaints of a dry cough for the last 2 days. Patient denies any shortness of breath, wheezing, hemoptysis, fever, nausea, vomiting, diarrhea, abdominal pain. She states that her ears hurt and her throat has also been a little sore. Patient has also complained of chills and body aches today. She denies any chest pain or palpitations. She currently rates her pain a 0/10 on the pain scale. All other ROS is neg unless otherwise noted in HPI. (NEPTALI WAGGONER APRN) Review of Systems Review of Systems See Above (NEPTALI WAGGONER APRN) Allergies Allergies Allergies Coded Allergies Type Severity Reaction Last Updated Verified No Known Drug Allergies 06/04/15 No (COURTNEY MOHAN MD) Physical Exam Physical Exam See Above Constitutional: Well developed, well nourished, no acute distress, non-toxic appearance. [] HENT: Normocephalic, atraumatic, bilateral external ears normal, bilateral TMs normal, posterior pharynx normal, oropharynx moist, no oral exudates, nose normal. [] Eyes: PERRLA, EOMI, conjunctiva normal, no discharge. [] Neck: Normal range of motion, no tenderness, supple, no stridor. [] Cardiovascular:Heart rate regular rhythm, no murmur [] Lungs & Thorax: Bilateral breath sounds clear to auscultation, no retractions, no wheezing [] Skin: Warm, dry, no erythema, no rash. [] Back: No tenderness Extremities: No cyanosis, no clubbing, ROM intact Neurologic: Alert and oriented X 3, no focal deficits noted. [] Psychologic: Affect normal, judgement normal, mood normal. [] (NEPTALI WAGGONER APRN) Current Patient Data Vital Signs Vital Signs Date Time Temp Pulse Resp B/P (MAP) Pulse Ox O2 Delivery O2 Flow Rate FiO2 06/08/19 23:51 98.3 100 16 125/76 (92) 98 Room Air 98.3 (COURTNEY MOHAN MD) EKG EKG [] (NEPTALI WAGGONER APRN) Radiology/Procedures Radiology/Procedures [] (NEPTALI WAGGONER APRN) Course & Med Decision Making Course & Med Decision Making Pertinent Labs and Imaging studies reviewed. (See chart for details) dx: medical screening exam A medical screening exam was performed, patient was found to have no emergent medical condition. The plan of care would've included prescription for Tessalon Perles and URI instructions. However, the patient eloped after talking with registration. [] [] (NEPTALI WAGGONER APRN) Dragon Disclaimer Dragon Disclaimer This electronic medical record was generated, in whole or in part, using a voice recognition dictation system. (NEPTALI WAGGONER APRN) Departure Departure Impression: Primary Impression: Encounter for medical screening examination Referrals: NO PCP (PCP) Scripts No Active Prescriptions or Reported Meds NEPTALI WAGGONER APRN Jun 09, 2019 00:00 COURTNEY MOHAN MD Jun 11, 2019 18:22
== END 2019-06-09 00:15 | disposition left against medical advice (07) ==
LOC: ER 23:37
DX: R05 Cough (principal); R68.83 Chills (without fever); R52 Pain, unspecified
CPT/HCPCS: 99281

== ENCOUNTER 2019-09-19 21:15 | Emergency (ER) | payer SELFPAY ==
[~2019-09-19] VITALS: Ht 162.6 cm; Wt 72.0 kg
[2019-09-19 21:28] VITALS: BP 147/90
[2019-09-19] MEDS ORDERED: AMOX1TAB61 PO (21:57)
--- NOTE | 2019-09-19 21:57 | PHYS DOC ---
Past Medical History Past Medical History: No Pertinent History (AWILDA CASTRO APRN) Past Surgical History: No Surgical History (AWILDA CASTRO APRN) Smoking Status: Never Smoker Alcohol Use: None Drug Use: None (AWILDA CASTRO APRN) Attending Signature I have participated in the care of this patient and I have reviewed and agree with all pertinent clinical information above including history, exam, and recommendations. (COURTNEY MOHAN MD) Adult General Chief Complaint Chief Complaint: DENTAL PROBLEM HPI HPI Patient is a 29 year old female who presents with dental pain this been ongoing since yesterday. The patient has left facial swelling. Complete ROS were reviewed and found to be within normal limits, except as documented in the HPI (AWILDA CASTRO APRN) Current Medications Current Medications Current Medications Medications (Trade) Dose Ordered Sig/Cynthia Start Time Stop Time Status Last Admin Dose Admin Al Hydroxide/Mg Hydroxide (Mylanta Plus Xs) 30 ml 1X ONCE 09/19/19 22:30 09/19/19 22:18 DC Lidocaine HCl (Viscous Lidocaine) 15 ml 1X ONCE 09/19/19 22:30 09/19/19 22:18 DC (COURTNEY MOHAN MD) Allergies Allergies Allergies Coded Allergies Type Severity Reaction Last Updated Verified No Known Drug Allergies 06/04/15 No (COURTNEY MOHAN MD) Physical Exam Physical Exam Constitutional: Well developed, well nourished, no acute distress, non-toxic appearance. [] HENT: Normocephalic, atraumatic, bilateral external ears normal, oropharynx moist, no oral exudates, nose normal. Tooth # 14 has an infected cavity. Neurologic: Alert and oriented X 3, normal motor function, normal sensory f unction, no focal deficits noted. [] Psychologic: Affect normal, judgement normal, mood normal. [] (AWILDA CASTRO APRN) Current Patient Data Vital Signs Vital Signs Date Time Temp Pulse Resp B/P (MAP) Pulse Ox O2 Delivery O2 Flow Rate FiO2 09/19/19 21:28 98.9 72 20 147/90 (109) 98 Room Air 98.9 (COURTNEY MOHAN MD) EKG EKG [] (AWILDA CASTRO APRN) Radiology/Procedures Radiology/Procedures [] (AWILDA CASTRO APRN) Course & Med Decision Making Course & Med Decision Making Pertinent Labs and Imaging studies reviewed. (See chart for details) We will give the patient dental balls and have the patient Augmentin. Discussed the patient she is to follow-up with a dentist. (AWILDA CASTRO APRN) Jessica Disclaimer Dragon Disclaimer This electronic medical record was generated, in whole or in part, using a voice recognition dictation system. (AWILDA CASTRO APRN) Departure Departure Impression: Primary Impression: Pain, dental Disposition: HOME, SELF-CARE Condition: STABLE Referrals: NO PCP (PCP) Patient Instructions: Dental Pain Additional Instructions: Thank you for visiting [facility]. We appreciate you trusting us with your care. If any additional problems come up don't hesitate to return to visit us. Please follow up with your primary care provider so they can plan additional care if needed and know about the problem that you had. If symptoms worsen come back to the Emergency Department. Any concerning symptoms that start such as chest pain, shortness of air, weakness or numbness on one side of the body, running high fevers or any other concerning symptoms return to the ER. You have been prescribed an antibiotic today to help fight your infection. Please take all of the antibiotic as directed. If after 48 hours the infection is not improving, please return for more care. If the infection worsens, return to ER for additional care. Please follow-up with a dentist soon as possible. Scripts Amoxicillin/Potassium Clav (AUGMENTIN 875-125 TABLET) 1 Each Tablet 1 TAB PO BID for 10 Days, #20 TAB 0 Refills Prov: AWILDA CASTRO APRN 09/19/19 AWILDA CASTRO APRN Sep 19, 2019 21:56 COURTNEY MOHAN MD Sep 20, 2019 21:38
[2019-09-19] MEDS ORDERED: LIDOCAINE 2% VISCOUS 15 ML SOLUTION. SWSW ONE (22:30)
[2019-09-19] MEDS ORDERED: MAG HYDROX/ALUMINUM HYD/SIMETH 30 ML ORAL.SUSP PO ONE (22:30)
== END 2019-09-19 22:18 | disposition home or self-care (01) ==
LOC: ER 21:15
DX: K08.89 Other specified disorders of teeth and supporting structures (principal)
CPT/HCPCS: 99283